=== PATIENT | female | born 1975 | race African-American/Black ===

== ENCOUNTER 2019-01-15 15:18 | Emergency (ER) | payer BC ==
[~2019-01-15] VITALS: Ht 162.6 cm; Wt 77.3 kg
[2019-01-15 15:26] VITALS: Ht 162.6 cm; Wt 77.3 kg
[2019-01-15] MEDS ORDERED: TOPROL XL50 MG PO (15:32)
[2019-01-15] MEDS ORDERED: XANAX0.25 MG PO (15:33)
[2019-01-15 16:18] LABS: CKMB 0.9 U/L (0.0-3.6); CREATINE KINASE 278 UL (21-215)
[2019-01-15 16:19] LABS: TROPONIN-I < 0.017 ng/mL (0.000-0.060)
[2019-01-15 16:51] LABS: BASOPHILS 0.3 % (0-2); EOSINOPHILS 4.7 % (0-7); HEMATOCRIT 37.3 % (36.0-48.0); HEMOGLOBIN 12.7 g/dL (12-16); IMMATURE GRANULOCYTES 0.3 % (0-5); LYMPHOCYTES 27.1 % (15-50); MCH 29.2 pg (26.0-34.0); MCV 85.7 fL (80.0-100.0); MEAN PLATELET VOLUME 10.8 fL (7.4-10.4); MONOCYTES 6.5 % (2-11); NEUTROPHILS 61.1 % (40-80); PLATELET COUNT 241 10x3/uL (130-400); RBC 4.35 10x6/uL (4.00-5.40); RDW 13.1 % (11.5-14.5); WBC 7.2 10x3/uL (4.8-10.8)
[2019-01-15 17:01] LABS: ALBUMIN 3.8 g/dL (3.4-5.0); ANION GAP 15.6 mmol/L (8-16); BILIRUBIN - TOTAL 0.19 mg/dL (0.2-1.3); CALCIUM 8.8 mg/dL (8.5-10.1); CARBON DIOXIDE 23.3 mmol/L (21.0-32.0); POTASSIUM - SERUM 3.9 mmol/L (3.5-5.1); PROTEIN - SERUM 7.5 g/dL (6.4-8.2)
[2019-01-15] MEDS ORDERED: NAPROSYN500 MG PO (17:48)
[2019-01-15 18:28] VITALS: BP 128/68
== END 2019-01-15 18:29 | disposition home or self-care (01) ==
LOC: D.ER 15:18
PROVIDERS: Family Medicine
DX: M94.0 Chondrocostal junction syndrome [Tietze] (principal); I10 Essential (primary) hypertension